=== PATIENT | female | born 1985 | race Caucasian/White ===

== ENCOUNTER 2019-08-02 12:27 | Inpatient (IN) | payer OTHER ==
[~2019-08-02] VITALS: Ht 154 cm; Wt 66.7 kg
[2019-12-17 12:41] VITALS: BP 112/66
[2019-12-17] MEDS ORDERED: OXYTOCIN 30 UNITS/LACT RINGERS 500 ML IV ONE (13:35)
[2019-12-17] MEDS ORDERED: RINGERS SOLUTION,LACTATED 1,000 ML IV PRN (13:35)
[2019-12-17] MEDS ORDERED: OXYGEN THERAPY IH SCH (13:45)
[2019-12-17] MEDS ORDERED: LIDOCAINE/PF 1% 30 ML VIAL INJ PRN (13:45)
[2019-12-17] MEDS ORDERED: METOCLOPRAMIDE HCL 5 MG/ML 2 ML VIAL IVP PRN (13:45)
[2019-12-17] MEDS ORDERED: FentaNYL CITRATE-PF 100 MCG/2 ML VIAL IVP PRN (13:45)
[2019-12-17] MEDS ORDERED: METHYLERGONOVINE MALEATE 0.2 MG/ML VIAL IM PRN (13:45)
[2019-12-17] MEDS ORDERED: CITRIC ACID/SODIUM CITRATE 30 ML SOLUTION UDCUP PO PRN (13:45)
[2019-12-17] MEDS ORDERED: MISOPROSTOL 25 MCG TABLET VG SCH (13:45)
[2019-12-17] MEDS: RINGERS SOLUTION,LACTATED 1,000 ML IV SCH ×2 (14:11→22:34)
[2019-12-17 14:27] LABS: BASOPHILS % (AUTO) 0.4 % (0.0-2.0); EOSINOPHILS % (AUTO) 0.3 % (1.0-6.0); HEMOGLOBIN 11.6 g/dL (12.0-16.0); LYMPHOCYTES # (AUTO) 0.8 K/uL (1.0-4.8); LYMPHOCYTES % (AUTO) 11.5 % (22.0-44.0); MEAN CORPUSCULAR HEMOGLOBIN 32.8 pg (26.0-34.0); MEAN CORPUSCULAR VOLUME 96 fL (80-100); MONOCYTES # (AUTO) 0.7 K/uL (0.1-1.0); NEUTROPHILS # (AUTO) 5.5 K/uL (1.8-7.7); NEUTROPHILS % (AUTO) 77.8 % (40.0-70.0); PLATELET COUNT (AUTO)-OB 229 K/uL (150-450); RED BLOOD CELL COUNT(AUTO) 3.53 MIL/uL (4.00-5.20); RED CELL DISTRIBUTION WIDTH 14.1 % (11.5-14.5)
[2019-12-17] MEDS ORDERED: MISOPROSTOL 50 MCG TABLET PO SCH (17:45)
[2019-12-17] MEDS: GuaiFENesin/D-METHORPHAN [SUGAR-FREE] 200-20MG/10 ML SYRUP UDCUP PO PRN (18:14)
[2019-12-17] MEDS ORDERED: DiphenhydrAMINE HCL 25 MG CAPSULE PO ONE (21:00)
[2019-12-17] MEDS ORDERED: ACETAMINOPHEN 500 MG TABLET PO ONE ×2 (21:00→21:30)
[2019-12-17] MEDS ORDERED: DINOPROSTONE 10 MG VAGINAL SUPPOSITORY VG ONE (22:30)
[2019-12-17] MEDS ORDERED: OXYTOCIN 30 UNITS/LACT RINGERS 500 ML IV PRN (22:49)
[2019-12-17] MEDS ORDERED: AMPICILLIN SODIUM 2 GM/NS 100 ML IV ONE (23:00)
[2019-12-18] MEDS: GuaiFENesin/D-METHORPHAN [SUGAR-FREE] 200-20MG/10 ML SYRUP UDCUP PO PRN ×2 (01:24→10:32)
[2019-12-18] MEDS: RINGERS SOLUTION,LACTATED 1,000 ML IV SCH (01:25)
[2019-12-18] MEDS ORDERED: ROPIVACAINE HCL/PF 0.2% 100 ML ED ONE (01:30)
[2019-12-18] MEDS ORDERED: DiphenhydrAMINE HCL 50 MG/ML VIAL IVP PRN (02:00)
[2019-12-18] MEDS ORDERED: ONDANSETRON HCL 4 MG/2 ML VIAL IVP PRN (02:00)
[2019-12-18] MEDS ORDERED: ROPIVACAINE HCL/PF 0.2% 100 ML ED PRN (02:00)
[2019-12-18] MEDS: AMPICILLIN SODIUM 1 GM/NS 50 ML IV SCH ×2 (03:26→07:44)
[2019-12-18] MEDS ORDERED: MINERAL OIL 30 ML UDCUP VG ONE (07:15)
[2019-12-18] MEDS ORDERED: OXYTOCIN 30 UNITS/LACT RINGERS 500 ML IV ONE (09:06)
[2019-12-18] MEDS ORDERED: LIDOCAINE/PF 1% 30 ML VIAL INJ PRN (09:15)
[2019-12-18] MEDS ORDERED: OxyCODONE HCL/ACETAMINOPHEN 5-325 MG TABLET PO PRN ×2 (09:15)
[2019-12-18] MEDS ORDERED: LANOLIN 7 GM OINTMENT TP PRN (09:15)
[2019-12-18] MEDS ORDERED: GLYCERIN/WITCH HAZEL LEAF 40 PADS JAR TP PRN (09:15)
[2019-12-18] MEDS ORDERED: BENZOCAINE 20%/MENTHOL 56 GM SPRAY CANISTER TP PRN (09:15)
[2019-12-18] MEDS ORDERED: -PHARMACY NOTE- MISC ONE (10:00)
[2019-12-18] MEDS: IBUPROFEN 800 MG TABLET PO PRN ×2 (13:52→21:29)
[2019-12-18 17:45] VITALS: BP 107/59
[2019-12-18] MEDS: MAGNESIUM HYDROXIDE SUSPENSION 30 ML UDCUP PO PRN (21:28)
[2019-12-19 05:33] LABS: BASOPHILS % (AUTO) 0.1 % (0.0-2.0); EOSINOPHILS % (AUTO) 0.9 % (1.0-6.0); HEMOGLOBIN 9.6 g/dL (12.0-16.0); LYMPHOCYTES # (AUTO) 1.8 K/uL (1.0-4.8); MEAN CORPUSCULAR HEMOGLOBIN 33.2 pg (26.0-34.0); MEAN CORPUSCULAR HGB CONC 34.4 G/dL (31.0-37.0); MEAN CORPUSCULAR VOLUME 96 fL (80-100); MONOCYTES # (AUTO) 0.8 K/uL (0.1-1.0); MONOCYTES % (AUTO) 8.2 % (2.0-9.0); NEUTROPHILS # (AUTO) 6.8 K/uL (1.8-7.7); NEUTROPHILS % (AUTO) 71.8 % (40.0-70.0); PLATELET COUNT (AUTO)-OB 194 K/uL (150-450); RED BLOOD CELL COUNT(AUTO) 2.91 MIL/uL (4.00-5.20); RED CELL DISTRIBUTION WIDTH 14.2 % (11.5-14.5)
[2019-12-19] MEDS: MAGNESIUM HYDROXIDE SUSPENSION 30 ML UDCUP PO PRN (08:23)
[2019-12-19] MEDS ORDERED: ACET-2116 PO (11:21)
[2019-12-19] MEDS ORDERED: IBUP-2070 PO (11:22)
[2019-12-19] MEDS ORDERED: DOCU-275 PO (11:23)
== END 2019-12-19 12:35 | disposition home or self-care (01) | DRG 807 ==
LOC: 4S 12-17 12:04 → OBSVTOIN 12-17 12:04
PROVIDERS: ADMIT Obstetrics & Gynecology; ATTEND Obstetrics & Gynecology
PROC: 10E0XZZ Delivery of Products of Conception, External Approach (ICD-10-PCS; principal; 2019-12-18)
PROC: 0KQM0ZZ Repair Perineum Muscle, Open Approach (ICD-10-PCS; 2019-12-18)
PROC: 10907ZC Drainage of Amniotic Fluid, Therapeutic from Products of Conception, Via Natural or Artificial Opening (ICD-10-PCS; 2019-12-18)
PROC: 3E0R3BZ Introduction of Anesthetic Agent into Spinal Canal, Percutaneous Approach (ICD-10-PCS; 2019-12-18)
PROC: 00HU33Z Insertion of Infusion Device into Spinal Canal, Percutaneous Approach (ICD-10-PCS; 2019-12-18)
PROC: 30233S1 Transfusion of Nonautologous Globulin into Peripheral Vein, Percutaneous Approach (ICD-10-PCS; 2019-12-18)
DX: O76 Abnormality in fetal heart rate and rhythm complicating labor and delivery (principal); Z37.0 Single live birth; O70.1 Second degree perineal laceration during delivery; O99.824 Streptococcus B carrier state complicating childbirth; O69.81X0 Labor and delivery complicated by cord around neck, without compression, not applicable or unspecified; O77.0 Labor and delivery complicated by meconium in amniotic fluid; Z3A.40 40 weeks gestation of pregnancy
CPT/HCPCS: 85461; 86850; 86900; 86901; J0290; J2210; J2590; J2795; J3490; J7120